=== PATIENT | male | born 1990 | race African-American/Black ===

== ENCOUNTER 2016-06-11 10:17 | Emergency (ER) | payer MEDICAID ==
[~2016-06-11] VITALS: Ht 170.2 cm; Wt 74.8 kg
[2016-06-11 11:41] VITALS: BP 119/79
== END 2016-06-11 13:00 | disposition left against medical advice (07) ==
LOC: ER 10:17
DX: J45.909 Unspecified asthma, uncomplicated (principal); F20.9 Schizophrenia, unspecified; F17.210 Nicotine dependence, cigarettes, uncomplicated; F12.10 Cannabis abuse, uncomplicated; F14.10 Cocaine abuse, uncomplicated; Z59.0 Homelessness; Z76.0 Encounter for issue of repeat prescription
CPT/HCPCS: 81002

== ENCOUNTER 2016-08-03 18:36 | Emergency (ER) | payer MEDICAID ==
[~2016-08-03] VITALS: Ht 170.2 cm; Wt 72.6 kg
[2016-08-03 20:13] LABS: Basophils # (auto) 0 uL; Basophils % (auto) 0.8 % (0.0-2.0); Eosinophils # (auto) 0.3 uL; Eosinophils % (auto) 4.9 % (0.0-7.0); Hematocrit 42.6 % (41.0-53.0); Hemoglobin 14.2 g/dL (13.5-17.5); Lymphocytes # (auto) 2.4 uL; Lymphocytes % (auto) 39.2 % (10.0-50.0); Mean Corpuscular Hemoglobin 29.8 pg (28.0-32.0); Mean Corpuscular Hgb Conc. 33.3 g/dL (32.0-36.0); Mean Corpuscular Volume 89.3 fL (80.0-100.0); Mean Platelet Volume 8.5 fL (7.4-10.4); Monocytes # (auto) 0.4 uL; Monocytes % (auto) 6.2 % (0.0-12.0); Neutrophils # (auto) 2.9 uL; Neutrophils % (auto) 48.9 % (37.0-80.0); Platelet Count (auto) 280 10^3/uL (140-450); Red Cell Distribution Width 12.5 % (11.6-16.0); SUSPECT VIEW TRANSMISSION
[2016-08-03 20:33] LABS: Albumin 4.1 g/dL (3.4-5.0); Calcium 8.4 mg/dL (8.5-10.1); Potassium 3.8 mmol/L (3.5-5.1)
[2016-08-03 20:35] LABS: Salicylate < 1.7 mg/dL (2.8-20.0)
[2016-08-03 20:48] LABS: Acetaminophen < 2.0 ug/mL (10-30); BUN/Creatinine Ratio 16.3; Bilirubin, Total 0.4 mg/dL (0.2-1.0); Total Protein 8.1 g/dL (6.4-8.2)
[2016-08-04] MEDS ORDERED: QUEtiapine FUMARATE 25 MG TAB PO ONE (00:30)
[2016-08-04] MEDS ORDERED: QUEtiapine FUMARATE 25 MG TAB PO PRN (01:30)
[2016-08-04] MEDS ORDERED: OLANZapine 5 MG TAB PO SCH (10:00)
[2016-08-04 16:27] VITALS: BP 126/77
== END 2016-08-04 17:03 | disposition short-term general hospital (02) ==
LOC: ER 18:38
DX: F20.9 Schizophrenia, unspecified (principal); J45.909 Unspecified asthma, uncomplicated; F17.210 Nicotine dependence, cigarettes, uncomplicated; F12.10 Cannabis abuse, uncomplicated; F14.10 Cocaine abuse, uncomplicated; Z59.0 Homelessness; R45.851 Suicidal ideations
CPT/HCPCS: 36415; 80053; 80329; 85025; 99285; G0434